=== PATIENT | female | born 1960 | race Caucasian/White ===

== ENCOUNTER 2017-03-03 10:52 | Inpatient (IN) | payer OTHER ==
--- NOTE | 2017-02-21 15:17 | HP ---
HISTORY AND PHYSICAL: DATE OF ADMISSION: 03/03/17 DATE OF OFFICE VISIT: 02/21/17 SURGEON: Yissel Noel MD (DICTATED BY LUIS A MAYES) PROCEDURE: Left total knee arthroplasty. CHIEF COMPLAINT: Left knee pain. HISTORY OF PRESENT ILLNESS: Ms. Chavira is a 57-year-old female with complaints of left knee pain. She has failed conservative management and continues to have severe left knee pain affecting her activities of daily living and she has elected to proceed with a left total knee arthroplasty, which is scheduled for 03/03/[address] Noel. PAST MEDICAL HISTORY: 1. COPD. 2. High cholesterol. 3. Hypertension. PAST SURGICAL HISTORY: 1. Cholecystectomy. 2. Left knee/lower leg fracture surgery. CURRENT MEDICATIONS: 1. Lisinopril. 2. Flexeril. 3. Pramipexole. 4. Simvastatin. 5. Tramadol. 6. Naproxen. 7. Ventolin HFA. 8. Spiriva. ALLERGIES: No known drug allergies. FAMILY HISTORY: Diabetes, hypertension, rheumatoid arthritis, melanoma. SOCIAL HISTORY: She is a 57-year-old female. She lives with spouse. She works as a store stock associate. She smokes 2 cigarettes a day. She smoked for the last 30 years. She uses alcohol rarely. She denies using illicit drugs. REVIEW OF SYSTEMS: A complete 14-point review of systems was reviewed with the patient and was positive for COPD with occasional shortness of breath. Hepatitis C status is unknown. She denies history of DVT, PE, or anesthesia problems. PHYSICAL EXAMINATION GENERAL: She is well developed, well nourished, in no acute distress. VITAL SIGNS: She stands 5 feet 7 inches tall, weighs 200 pounds. Her blood pressure 138/83, her heart rate is 72. HEENT: Normocephalic, atraumatic. NECK: Supple. No palpable lymph nodes. Trachea is midline. PULMONARY: Lungs are clear to auscultation bilaterally. CARDIO: Regular rate and rhythm. Strong S1 and S2. ABDOMEN: Soft, nontender, and nondistended. MUSCULOSKELETAL: Left lower extremity skin is intact. There are no open wounds or abrasions. She has mild joint effusion. Tenderness over the medial and lateral joint line. Full range of motion of the left knee. Her lower extremity muscle group strengths are intact at 5/5. She has intact sensation, 2 + dorsalis pedis pulses. NEUROLOGIC: She is alert and oriented x3. Cranial nerves II through XII are intact. ASSESSMENT AND PLAN: Ms. Chavira is a 57-year-old female with complaints of left knee pain secondary to osteoarthritis. She has failed conservative management and has elected to proceed with a left total knee arthroplasty, which is scheduled on 03/03/[address] Noel discussed the risks and benefits of the surgery at today's visit and all of her questions were answered. Percocet, Colace, and Coumadin were sent to her pharmacy today for postoperative pain control and DVT prophylaxis. She will see Dr. Noel back in 2 weeks after the surgery. LUIS A MAYES [id number]/[facility] #: [id number] MTDD
[~2017-03-03 10:52] MED LIST: Famotidine IV* 10 MG/ML 2 ML (20 mg) IV ONE; Metoclopramide TAB* 10 MG PO ONE
[2017-03-03] MEDS ORDERED: Metoclopramide TAB* 10 MG ONE (11:18)
[2017-03-03] MEDS ORDERED: Famotidine IV* 10 MG/ML 2 ML (20 mg) ONE (11:18)
[2017-03-03] MEDS ORDERED: ceFAZolin 2 GM PREMIX(*) 2 GM/50 ML BAG IVPB ONE (11:18)
[2017-03-03] MEDS ORDERED: Buffered Lidocaine 1% SYRIN* 5 ML/SYR SYRINGE ONE (11:18)
[2017-03-03] MEDS ORDERED: Ketorolac INJ* 30 MG/ML 1 ML VIAL ONE (11:55)
[2017-03-03] MEDS ORDERED: Midazolam* 1 MG/ML 5 ML VIAL (5 MG) ONE (11:55)
[2017-03-03] MEDS ORDERED: Lidocaine 2% PF * 5 ML VIAL ONE (11:55)
[2017-03-03] MEDS ORDERED: Dexamethasone IV* 4 MG/ML 1 ML (4 MG) ONE (11:55)
[2017-03-03] MEDS ORDERED: fentaNYL* 50 MCG/ML 2 ML VIAL (100 MCG VIAL) ONE ×3 (11:55→12:52)
[2017-03-03] MEDS ORDERED: Ondansetron INJ* 2 MG/ML VIAL ONE (11:55)
[2017-03-03] MEDS ORDERED: KETAMINE HCL* 50 MG/ML 10 ML VIAL ONE (11:55)
[2017-03-03] MEDS ORDERED: Propofol* 10 MG/ML 20 ML BTL IV PUSH ONE ×3 (11:55→15:47)
[2017-03-03] MEDS ORDERED: HYDROmorphone* 2 MG/ML 1 ML SYR ONE (13:28)
[2017-03-03] MEDS ORDERED: Morphine PF AMP (0.5MG/ML)* 5 MG/10 ML AMP ONE (13:40)
[2017-03-03] MEDS ORDERED: Midazolam* 1 MG/ML 2 ML VIAL (2 MG) ONE ×2 (14:08→14:39)
[2017-03-03] MEDS ORDERED: Phenylephrine INJ* 50 MG in NS 0.9% 250 ML* 245 ML IV PRN (15:10)
[2017-03-03] MEDS ORDERED: fentaNYL* 50 MCG/ML 2 ML VIAL (100 MCG VIAL) IV PRN (15:10)
[2017-03-03] MEDS ORDERED: Ondansetron INJ* 2 MG/ML VIAL IV PRN ×2 (15:10→15:12)
[2017-03-03] MEDS ORDERED: Ketorolac INJ* 30 MG/ML 1 ML VIAL IV PRN (15:12)
[2017-03-03] MEDS ORDERED: Lactated Ringers 500 ml BAG* 500 ML IV PRN (15:12)
[2017-03-03] MEDS ORDERED: oxyCODONE/Acetamin 5/325 MG* TAB PO PRN (15:12)
[2017-03-03] MEDS ORDERED: EPHEDrine (Pressors)* 50 MG/ML VIAL IV PUSH PRN (15:12)
[2017-03-03] MEDS ORDERED: Naloxone* 0.4 MG/ML 1 ML VIAL IV PRN (15:17)
[2017-03-03] MEDS ORDERED: diPHENhydraMINE IV* 50 MG/ML 1 ml VIAL (BENADRYL) IV PRN (15:17)
[2017-03-03] MEDS ORDERED: Polyethylene Glycol 3350* 17 GM PACKET PO PRN (15:34)
[2017-03-03] MEDS ORDERED: diPHENhydraMINE PO* 25 MG PO PRN (15:34)
[2017-03-03] MEDS ORDERED: Bisacodyl SUPP* 10 MG SUPP PR PRN (15:34)
[2017-03-03] MEDS ORDERED: Albuterol HFA INHALER* 8 gm MDI INH PRN (15:42)
--- NOTE | 2017-03-03 18:08 | RAD ---
INDICATION: Left knee arthroplasty COMPARISON: None TECHNIQUE: A portable 2 view examination is submitted were obtained. FINDINGS: There is left knee arthroplasty. Both femoral and tibial components appear well seated. There is a surgical drain. There is a cooling jacket. IMPRESSION: POSTOPERATIVE LEFT TOTAL KNEE ARTHROPLASTY
[2017-03-03] MEDS ORDERED: oxyCODONE/Acetamin 5/325 MG* TAB ONE (21:06)
[2017-03-03] MEDS: oxyCODONE/Acetamin 5/325 MG* TAB PO PRN (21:07)
[2017-03-03] MEDS ORDERED: Warfarin TAB(*) 6 MG PO ONE (23:15)
[2017-03-04] MEDS ORDERED: ceFAZolin 1 GM in Dextrose (*) 1 GM/50 ML BAG IVPB SCH (00:14)
[2017-03-04] MEDS: Docusate CAP* 100 MG PO SCH ×3 (00:25→21:20)
[2017-03-04] MEDS: Atorvastatin* 10 MG TAB PO SCH ×2 (00:27→21:55)
[2017-03-04] MEDS: ceFAZolin VIAL(*) 1 GM in NS 0.9% 50 ML* 50 ML IVPB SCH ×3 (00:28→16:04)
[2017-03-04] MEDS: Cyclobenzaprine TAB* 10 MG PO SCH ×4 (00:31→21:20)
[2017-03-04] MEDS: Mometasone/Formoter 200/5 MDI INH SCH ×3 (00:32→21:34)
[2017-03-04] MEDS: Magnesium Hydroxide LIQ* 30 ML UDC PO SCH ×3 (00:32→21:22)
[2017-03-04] MEDS: Ropivacaine* 300 MG in NS 0.9% 250 ML* 240 ML EPIDURAL SCH ×2 (01:10→15:12)
[2017-03-04] MEDS: oxyCODONE/Acetamin 5/325 MG* TAB PO PRN ×5 (03:30→20:39)
[2017-03-04] MEDS ORDERED: Lactated Ringers 500 ml BAG* 500 ML IV SCH (05:55)
[2017-03-04] MEDS ORDERED: Ondansetron INJ* 2 MG/ML VIAL IV PRN (06:00)
[2017-03-04] MEDS ORDERED: Ondansetron TAB* 4 MG PO PRN (06:00)
[2017-03-04] MEDS ORDERED: Acetaminophen TAB* 325 MG PO PRN (06:00)
[2017-03-04] MEDS ORDERED: oxyCODONE/Acetamin 5/325 MG* TAB PO PRN (06:00)
[2017-03-04] MEDS ORDERED: diPHENhydraMINE IV* 50 MG/ML 1 ml VIAL (BENADRYL) IV PRN (06:00)
[2017-03-04 06:26] LABS: Hematocrit 37 % (35-47); Hemoglobin 11.9 g/dl (12.0-16.0)
[2017-03-04 06:37] LABS: BUN/Creatinine Ratio 21.6 (8-20); Calcium 8.4 mg/dL (8.6-10.3); EGFR Non-African American 80.9 (>60)
--- NOTE | 2017-03-04 07:42 | PN ---
Progress Note - Progress Note SOAP: Subjective: Pt. is doing will this am, pain is controlled. Objective: LLE - drain removed, tip intact with 350 cc ss drainage. distally nvi with +df/ pf, full sens lt, 2+ dp pulse. Vital Signs: Temp Pulse Resp BP Pulse Ox 98.1 F 100 16 109/57 95 03/04/17 04:19 03/04/17 04:19 03/04/17 05:30 03/04/17 04:19 03/04/17 04:19 Laboratory Results - last 24 hr 03/04/17 03/04/17 03/04/17 06:01 06:01 06:01 Hgb 11.9 L Hct 37 INR (Anticoag Therapy) 1.14 H Sodium 134 Potassium 4.0 Chloride 102 Carbon Dioxide 28 Anion Gap 4 BUN 16 Creatinine 0.74 Est GFR ( Amer) 104.0 Est GFR (Non-Af Amer) 80.9 BUN/Creatinine Ratio 21.6 H Glucose 203 H Calcium 8.4 L Assessment: 57 yo F pod 1 s/p LTKA Plan: wbat lle pt/ot xrays satisfactory 8 mg coumadin tonight, lovenox bridge today plan d/c to home 03/05
[2017-03-04] MEDS: Morphine INJ* 10 MG/ML 1 ML SYRINGE IV PRN ×5 (08:20→23:46)
[2017-03-04] MEDS: Tiotropium CAP.INH* CAP.INH/18 MCG INH SCH (08:22)
--- NOTE | 2017-03-04 08:43 | CONS ---
CC: Dr. Noel; LUIS A Hawthorne CONSULTATION REPORT: DATE OF ADMISSION: 03/03/17 DATE OF CONSULT: 03/03/17 PRIMARY CARE PROVIDER: LUIS A Hawthorne, of [facility] ATTENDING PHYSICIAN: Gary Reis MD (dictated by Sena Rubi NP) PHYSICIAN REQUESTING CONSULTATION: Yissel Noel MD REASON FOR CONSULTATION: Co-medical management. HISTORY OF PRESENT ILLNESS: Ms. Chavira is a 57-year-old female with past medical history significant for hepatitis C, COPD, hyperlipidemia, hypertension , restless leg syndrome, and osteoarthritis who presents to the hospital for an elective right total knee arthroplasty with Dr. Noel. The patient states that leading up to her surgery, she has been in a good state of health with the exception of left knee pain. The patient denies any recent fevers, chills, chest pain, shortness of breath, nausea, vomiting, diarrhea, or urinary symptoms. Hospitalists were asked to assist with the management of this patient during her postoperative period. PAST MEDICAL HISTORY: 1. COPD. 2. Hyperlipidemia. 3. Hypertension. 4. Hepatitis C. 5. Restless leg syndrome. 6. Cervicalgia. PAST SURGICAL HISTORY: 1. Status post cholecystectomy. 2. Status post ORIF of the left leg. HOME MEDICATIONS: Include: 1. Lisinopril/hydrochlorothiazide 20/25 mg oral daily. 2. Flexeril 10 mg oral 3 times as needed for muscle spasm. 3. Tramadol 50 mg 1 to 2 tablets daily at bedtime as needed for pain. 4. Naproxen 500 mg oral twice daily as needed for pain. 5. Albuterol HFA 1 to 2 puffs inhalation every 4 hours as needed for shortness of breath. 6. Spiriva 1 puff inhalation daily. 7. Symbicort 160/4.5 mcg 2 puffs inhalation twice daily. ALLERGIES: No known drug allergies. FAMILY HISTORY: The patient denies any family history of coronary artery disease. The patient's maternal grandmother had a history of melanoma and diabetes mellitus. SOCIAL HISTORY: The patient is a current smoker, smoking approximately 2 cigarettes a day. She reports decreasing the amount of cigarettes she has smoked over the years and has smoked for approximately the last 30 years. The patient rarely drinks alcohol. She denies the use of recreational drugs. The patient is employed. She lives with her , Josh Chavira, who will be her surrogate decision maker in the event she is unable to make decisions for herself. REVIEW OF SYSTEMS: I performed a 14-point review of systems. All the pertinent positives and negatives are mentioned in the history of present illness. The remaining review of systems are negative. PHYSICAL EXAMINATION: Vital Signs: Temperature 98.6, heart rate 80, respiratory rate 16, O2 saturation 92% on 2 L via nasal cannula, and blood pressure 102/67. General appearance: The patient is alert, and appears to be in no acute distress. HEENT: Normocephalic, atraumatic. Pupils are equal and reactive to light. Extraocular movements are intact. Respiratory: There is no accessory muscle use and the lungs are clear to auscultation bilaterally. Cardiovascular: Regular rate and rhythm. S1, S2 are crisp. There are no murmurs, rubs, or gallops heard. Abdomen: Soft, tender and nondistended. There are bowel sounds present x4. Extremities: There is no lower extremity edema. DP and PT pulses are 2+ and symmetric. Musculoskeletal: There is no clubbing or cyanosis noted. The patient is currently unable to move her lower extremities due to her Duramorph spinal and epidural anesthesia. Skin: There is a dressing on the patient's left knee that is clean, dry, and intact. Neurological: Cranial nerves II through XII are grossly intact. The patient is currently unable to move and has no feeling in her lower extremities due to Duramorph spinal and epidural. Psychological: The patient is calm and cooperative. DIAGNOSTIC STUDIES/LAB DATA: Preoperative data from 02/25/17: White blood cell count 8.7, hemoglobin 16.4, hematocrit 49, and platelet count 208. Urinalysis was negative. Labs from 02/23/17 reveal a sodium of 137, potassium 3.8, chloride 99, CO2 30, BUN 16, creatinine 0.81, and glucose 120. EKG shows a sinus tachycardia with a rate of 102. Chest x-ray from 02/25/17. Radiologist's impression: Hyperinflation and no cardiopulmonary disease. IMPRESSION: Ms. Chavira is a 57-year-old female with past medical history significant for chronic obstructive pulmonary disease, hypertension, hyperlipidemia, and osteoarthritis who presents to the hospital stay for an elective left total knee arthroplasty with Dr. Noel. Hospitalists were asked to assist with the co-management of this patient during her hospitalization. ASSESSMENT/PLAN: 1. Status post left total knee arthroplasty: Management will be per Orthopedic Surgery. The patient will have physical therapy and occupational therapy starting in the morning. The patient's H and H will be trended. She will have a urinary catheter in place until her epidural is removed. For the patient has the effects of the Duramorph spinal and an epidural, pain management will be per Anesthesia. After that, pain management will be per Orthopedic Surgery. 2. Hypertension: We will hold the patient's lisinopril and hydrochlorothiazide during the perioperative period and restart accordingly. 3. Hyperlipidemia: The patient is not currently on medications. She reports that her primary care provider recently took her off of them. 4. Restless leg syndrome: The patient is not currently on medications. 5. Chronic obstructive pulmonary disease: The patient will be continued on her home Spiriva, Symbicort or auto-substitute and albuterol as needed for shortness of breath. 6. Fluids, electrolytes, and nutrition: The patient will be on a heart- healthy diet after starting out with clear liquids advanced as tolerated. 7. DVT prophylaxis: The patient will be on Lovenox bridged to warfarin per Orthopedic Surgery. 8. Code status: Full code. 9. Disposition: Inpatient with disposition per Orthopedic Surgery. TIME SPENT: Time for this consultation was 60 minutes and greater than half of that was spent [id number] with the patient, discussing her past medical history, medications, and the events leading up to her arrival today and performing a physical examination. The case has been reviewed with the attending, Dr. Reis, who agrees with the plan of care. Reviewed by BEKA KUHN 03/04/17 1808 [id number]/[facility] #: [id number] MARY ANN
[2017-03-04] MEDS ORDERED: HCTZ PO SCH (09:00)
[2017-03-04] MEDS ORDERED: SPIRIVA PO SCH (09:00)
[2017-03-04] MEDS ORDERED: Spiriva Inhaler DEVICE* 1 EACH DEVICE INH ONE (09:00)
[2017-03-04] MEDS ORDERED: LISINOPRIL PO SCH (09:00)
[2017-03-04] MEDS: oxyCODONE TAB* 5 MG TAB PO PRN ×3 (09:38→22:31)
[2017-03-04] MEDS ORDERED: Enoxaparin(*) 30 MG/0.3 ML SYR SUBCUT SCH (16:00)
--- NOTE | 2017-03-04 16:30 | PN ---
Subjective Date of Service: 03/04/17 Interval History: Patient seen and examined at bedside. Pt states that she is feeling well today, but is having a lot of pain. Denies fever, chills, shortness of breath, chest discomfort, N/V/D. Pt complains of indigestion, she uses tums at home and was on Prilosec in the past. Family History: Unchanged from Admission Social History: Unchanged from Admission Past Medical History: Unchanged from Admission Objective Active Medications: Acetaminophen (Tylenol Tab*) 650 mg PO Q4H PRN Reason: mild pain or fever Albuterol (Ventolin Hfa Inhaler*) 1 puff INH Q6H PRN Reason: SOB/WHEEZING Atorvastatin Calcium (Lipitor*) 5 mg PO BEDTIME [place] Bisacodyl (Dulcolax Supp*) 10 mg DC DAILY PRN Reason: constipation Cyclobenzaprine HCl (Flexeril Tab*) 10 mg PO TID [place] Diphenhydramine HCl (Benadryl Iv*) 12.5 mg IV Q6H PRN Reason: PRURITIS Diphenhydramine HCl (Benadryl Po*) 25 mg PO Q6H PRN Reason: INSOMNIA Docusate Sodium (Colace Cap*) 100 mg PO BID [place] Enoxaparin Sodium (Lovenox(*)) 30 mg SUBCUT Q24H [place] Ropivacaine 300 mg/ Sodium (Chloride) 300 mls @ 0 mls/hr EPIDURAL Q24H [place]; Per Protocol Reason: Protocol Lactated Ringer's (Lactated Ringers 1000 Ml Bag*) 1,000 mls @ 100 mls/hr IV .PER RATE [place] Lactulose (Lactulose*) 30 ml PO Q6H PRN Reason: constipation Magnesium Hydroxide (Milk Of Magnesia Liq*) 30 ml PO BID [place] Mometasone Furoate/Formoterol Fumar (Dulera 200/5 Mdi*) 2 puff INH BID [place] Reason: Protocol Morphine Sulfate (Morphine Inj (Syringe)*) 5 mg IV Q2H PRN Reason: PAIN Ondansetron HCl (Zofran Inj*) 4 mg IV Q6H PRN Reason: nausea Ondansetron HCl (Zofran Tab*) 4 mg PO Q6H PRN Reason: NAUSEA Oxycodone HCl (Roxycodone Tab*) 10 mg PO Q4H PRN Reason: breakthru pain Oxycodone HCl (Oxycontin(*)) 10 mg PO BID [facility] Oxycodone/Acetaminophen (Percocet 5/325 Tab*) 1 tab PO Q3H PRN Reason: PAIN - MODERATE Oxycodone/Acetaminophen (Percocet 5/325 Tab*) 2 tab PO Q3H PRN Reason: PAIN - MODERATE Pharmacy Profile Note (Coumadin Daily Reminder*) 1 note FOLLOW UP 1700 [facility] Polyethylene Glycol/Electrolytes (Miralax*) 17 gm PO DAILY PRN Reason: Constipation Tiotropium [place] (Spiriva Cap.Inh*) 1 cap INH DAILY [facility] Warfarin Sodium (Coumadin Tab(*)) 8 mg PO ONCE@1700 ONE Stop: 03/04/17 17:01 Vital Signs 03/03/17 03/03/17 03/03/17 17:02 17:05 17:10 Temperature 98.6 F Pulse Rate 77 73 68 Respiratory 16 16 16 Rate Blood Pressure 107/65 106/72 105/70 (mmHg) O2 Sat by Pulse 92 97 97 Oximetry 03/03/17 03/03/17 03/03/17 17:15 17:30 17:45 Temperature Pulse Rate 77 83 80 Respiratory 16 16 16 Rate Blood Pressure 107/72 103/70 102/67 (mmHg) O2 Sat by Pulse 97 93 92 Oximetry 03/03/17 03/03/17 03/03/17 18:00 18:15 18:30 Temperature 97.2 F Pulse Rate 76 86 79 Respiratory 16 16 16 Rate Blood Pressure 107/73 102/62 105/70 (mmHg) O2 Sat by Pulse 93 92 93 Oximetry 03/03/17 03/03/17 03/03/17 19:00 19:15 19:30 Temperature 98.6 F Pulse Rate 85 83 89 Respiratory 18 16 18 Rate Blood Pressure 97/67 104/78 105/71 (mmHg) O2 Sat by Pulse 93 93 94 Oximetry 03/03/17 03/03/17 03/03/17 19:45 20:00 20:15 Temperature 98.1 F Pulse Rate 87 81 83 Respiratory 18 18 18 Rate Blood Pressure 116/74 118/78 124/74 (mmHg) O2 Sat by Pulse 95 95 96 Oximetry 03/03/17 03/03/17 03/03/17 20:30 20:35 21:07 Temperature 98.1 F 98.1 F Pulse Rate 89 89 Respiratory 16 16 16 Rate Blood Pressure 103/64 103/64 (mmHg) O2 Sat by Pulse 96 96 Oximetry 03/03/17 03/03/17 03/03/17 21:18 22:01 22:48 Temperature 98.3 F 98.3 F 97.8 F Pulse Rate 87 96 96 Respiratory 18 17 16 Rate Blood Pressure 112/63 116/66 124/57 (mmHg) O2 Sat by Pulse 95 94 100 Oximetry 03/03/17 03/04/17 03/04/17 23:07 00:39 00:51 Temperature 97.8 F Pulse Rate 96 Respiratory 16 16 Rate Blood Pressure 111/55 (mmHg) O2 Sat by Pulse 94 94 Oximetry 03/04/17 03/04/17 03/04/17 02:30 03:30 04:19 Temperature 98.5 F 98.1 F Pulse Rate 100 100 Respiratory 16 16 16 Rate Blood Pressure 103/54 109/57 (mmHg) O2 Sat by Pulse 92 95 Oximetry 03/04/17 03/04/17 03/04/17 05:30 07:29 08:00 Temperature 98.5 F Pulse Rate 99 Respiratory 16 15 16 Rate Blood Pressure 105/56 (mmHg) O2 Sat by Pulse 94 Oximetry 03/04/17 03/04/17 03/04/17 11:33 12:14 14:16 Temperature 98.5 F Pulse Rate 95 Respiratory 20 16 Rate Blood Pressure 105/61 (mmHg) O2 Sat by Pulse 98 Oximetry Oxygen Devices in Use Now: None Appearance: NAD, laying in bed Eyes: No Scleral Icterus Respiratory: Symmetrical Chest Expansion and Respiratory Effort, Clear to Auscultation Cardiovascular: NL Sounds; No Murmurs; No JVD, RRR Abdominal: NL Sounds; No Tenderness; No Distention Extremities: No Edema Skin: No Rash or Ulcers Neurological: Alert and Oriented x 3, NL Muscle Strength and Tone Lines/Tubes/Other Access: Clean, Dry and Intact Peripheral IV - site benign Nutrition: Taking PO's Result Diagrams: 03/04/17 06:01 03/04/17 06:01 Assess/Plan/Problems-Billing Assessment: Ms. Chavira is a 57 yo female with PMH significant for COPD, HTN, HLD, and osteoarthritis who presented to the hospital for an elective left total knee arthroplasty on 03/03/[address] Noel. - Patient Problems (1) Status post total left knee replacement Code(s): Z96.652 - PRESENCE OF LEFT ARTIFICIAL KNEE JOINT SNOMED Code(s): 3306119769665 Comment: - POD #1 - Management per Orthopedics - Continue PT/OT - Pain management and bowel regime - Trend HH (2) HTN (hypertension) Code(s): I10 - ESSENTIAL (PRIMARY) HYPERTENSION SNOMED Code(s): 90885042 Comment: - BP continues to be soft - Continue to hold lisinopril and HCTZ for now (3) HLD (hyperlipidemia) Code(s): E78.5 - HYPERLIPIDEMIA, UNSPECIFIED SNOMED Code(s): 27257670 Comment: - Defer to PCP (4) RLS (restless legs syndrome) (5) COPD (chronic obstructive pulmonary disease) Code(s): J44.9 - CHRONIC OBSTRUCTIVE PULMONARY DISEASE, UNSPECIFIED SNOMED Code(s): 05668267 Comment: - No signs of exacerbation at this time - Continue Spiriva, dulera and PRN albuterol (6) GERD (gastroesophageal reflux disease) Code(s): K21.9 - GASTRO-ESOPHAGEAL REFLUX DISEASE WITHOUT ESOPHAGITIS SNOMED Code(s): 141699532 Comment: - Tums PRN - Start Prilosec (7) DVT prophylaxis Code(s): RRC6118 - SNOMED Code(s): 793555052 Comment: - Lovenox bridge to warfarin per ortho (8) Full code status Code(s): Z78.9 - OTHER SPECIFIED HEALTH STATUS SNOMED Code(s): 650877558 Status and Disposition: Inpatient. Disposition per Ortho.
[2017-03-04] MEDS ORDERED: Calcium Carbonate CHEW TAB* 500 MG (TUMS) ONE (16:45)
[2017-03-04] MEDS: Calcium Carbonate CHEW TAB* 500 MG (TUMS) PO PRN ×2 (16:47→21:33)
[2017-03-04] MEDS ORDERED: Warfarin TAB(*) 4 MG PO ONE (17:00)
[2017-03-04] MEDS: oxyCODONE SR TAB(*) 10 MG TAB.SR PO SCH (21:21)
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
[2017-03-04] MEDS ORDERED: Ketorolac INJ* 30 MG/ML 1 ML VIAL ONE (23:21)
[2017-03-04] MEDS: Ketorolac INJ* 30 MG/ML 1 ML VIAL IV PUSH PRN (23:24)
[2017-03-05] MEDS: oxyCODONE/Acetamin 5/325 MG* TAB PO PRN ×3 (00:50→10:18)
[2017-03-05] MEDS: oxyCODONE TAB* 5 MG TAB PO PRN (02:43)
[2017-03-05] MEDS ORDERED: Omeprazole CAP* 20 MG PO SCH (06:00)
--- NOTE | 2017-03-05 07:51 | PN ---
Subjective Date of Service: 03/05/17 Interval History: Patient seen and examined at bedside. Pt states that her pain has improved overnight and she feels she may have "done too much" yesterday. Denies fever, chills, lightheadedness or dizziness, shortness of breath, chest discomfort, N/V /D. Family History: Unchanged from Admission Social History: Unchanged from Admission Past Medical History: Unchanged from Admission Objective Active Medications: Acetaminophen (Tylenol Tab*) 650 mg PO Q4H PRN Reason: mild pain or fever Albuterol (Ventolin Hfa Inhaler*) 1 puff INH Q6H PRN Reason: SOB/WHEEZING Atorvastatin Calcium (Lipitor*) 5 mg PO BEDTIME [place] Bisacodyl (Dulcolax Supp*) 10 mg NM DAILY PRN Reason: constipation Calcium Carbonate (Tums*) 500 mg PO Q4H PRN Reason: INDIGESTION Cyclobenzaprine HCl (Flexeril Tab*) 10 mg PO TID [place] Diphenhydramine HCl (Benadryl Iv*) 12.5 mg IV Q6H PRN Reason: PRURITIS Diphenhydramine HCl (Benadryl Po*) 25 mg PO Q6H PRN Reason: INSOMNIA Docusate Sodium (Colace Cap*) 100 mg PO BID [place] Enoxaparin Sodium (Lovenox(*)) 30 mg SUBCUT Q24H [place] Ketorolac Tromethamine (Toradol Inj*) 30 mg IV PUSH Q6H PRN Reason: PAIN Lactulose (Lactulose*) 30 ml PO Q6H PRN Reason: constipation Magnesium Hydroxide (Milk Of Magnesia Liq*) 30 ml PO BID [place] Mometasone Furoate/Formoterol Fumar (Dulera 200/5 Mdi*) 2 puff INH BID [place]ACA Reason: Protocol Morphine Sulfate (Morphine Inj (Syringe)*) 5 mg IV Q2H PRN Reason: PAIN Omeprazole (Prilosec Cap*) 20 mg PO 0600 [place] Ondansetron HCl (Zofran Inj*) 4 mg IV Q6H PRN Reason: nausea Ondansetron HCl (Zofran Tab*) 4 mg PO Q6H PRN Reason: NAUSEA Oxycodone HCl (Roxycodone Tab*) 10 mg PO Q4H PRN Reason: breakthru pain Oxycodone HCl (Oxycontin(*)) 10 mg PO BID [facility] Oxycodone/Acetaminophen (Percocet 5/325 Tab*) 1 tab PO Q3H PRN Reason: PAIN - MODERATE Oxycodone/Acetaminophen (Percocet 5/325 Tab*) 2 tab PO Q3H PRN Reason: PAIN - MODERATE Pharmacy Profile Note (Coumadin Daily Reminder*) 1 note FOLLOW UP 1700 [facility] Polyethylene Glycol/Electrolytes (Miralax*) 17 gm PO DAILY PRN Reason: Constipation Tiotropium [place] (Spiriva Cap.Inh*) 1 cap INH DAILY [facility] Vital Signs 03/04/17 03/04/17 03/04/17 11:23 11:33 12:14 Temperature 98.5 F Pulse Rate 95 Respiratory 16 20 Rate Blood Pressure 105/61 (mmHg) O2 Sat by Pulse 98 Oximetry 03/04/17 03/04/17 03/04/17 15:24 15:31 16:07 Temperature 98.0 F 98.1 F Pulse Rate 88 91 Respiratory 16 18 16 Rate Blood Pressure 98/56 113/60 (mmHg) O2 Sat by Pulse 90 92 Oximetry 03/04/17 03/04/17 03/04/17 20:00 20:16 20:39 Temperature 98.0 F Pulse Rate 91 Respiratory 16 16 18 Rate Blood Pressure 128/61 (mmHg) O2 Sat by Pulse 90 Oximetry 03/04/17 03/04/17 03/04/17 23:20 23:21 23:36 Temperature 98.2 F Pulse Rate 101 Respiratory 16 16 18 Rate Blood Pressure 122/80 (mmHg) O2 Sat by Pulse 97 Oximetry 03/04/17 03/05/17 03/05/17 23:46 00:00 00:31 Temperature Pulse Rate Respiratory 16 16 Rate Blood Pressure (mmHg) O2 Sat by Pulse 97 Oximetry 03/05/17 03/05/17 03/05/17 02:50 03:08 04:43 Temperature 97.8 F Pulse Rate 95 Respiratory 16 16 16 Rate Blood Pressure 118/55 (mmHg) O2 Sat by Pulse 95 Oximetry Oxygen Devices in Use Now: None Appearance: NAD, sitting up in a chair Eyes: No Scleral Icterus Respiratory: Symmetrical Chest Expansion and Respiratory Effort, Clear to Auscultation Cardiovascular: NL Sounds; No Murmurs; No JVD, RRR Abdominal: NL Sounds; No Tenderness; No Distention Extremities: No Edema Skin: No Rash or Ulcers, - - Dressing to right knee clean, dry and intact. Neurological: Alert and Oriented x 3, NL Muscle Strength and Tone Lines/Tubes/Other Access: Clean, Dry and Intact Peripheral IV - site benign Nutrition: Taking PO's Result Diagrams: 03/04/17 06:01 03/04/17 06:01 Assess/Plan/Problems-Billing Assessment: Ms. Chavira is a 57 yo female with PMH significant for COPD, HTN, HLD, and osteoarthritis who presented to the hospital for an elective left total knee arthroplasty on 03/03/[address] Noel. - Patient Problems (1) Status post total left knee replacement Code(s): Z96.652 - PRESENCE OF LEFT ARTIFICIAL KNEE JOINT SNOMED Code(s): 3394644019665 Comment: - POD #2 - Management per Orthopedics - HH stable - Continue PT/OT - Pain management and bowel regime (2) HTN (hypertension) Code(s): I10 - ESSENTIAL (PRIMARY) HYPERTENSION SNOMED Code(s): 21195266 Comment: - Normotensive - Continue to hold lisinopril and HCTZ for now, will resume if AM BP allows (3) HLD (hyperlipidemia) Code(s): E78.5 - HYPERLIPIDEMIA, UNSPECIFIED SNOMED Code(s): 99432452 Comment: - Defer to PCP (4) RLS (restless legs syndrome) (5) COPD (chronic obstructive pulmonary disease) Code(s): J44.9 - CHRONIC OBSTRUCTIVE PULMONARY DISEASE, UNSPECIFIED SNOMED Code(s): 49314448 Comment: - No signs of exacerbation at this time - Continue Spiriva, dulera and PRN albuterol (6) GERD (gastroesophageal reflux disease) Code(s): K21.9 - GASTRO-ESOPHAGEAL REFLUX DISEASE WITHOUT ESOPHAGITIS SNOMED Code(s): 243954125 Comment: - Continue Prilosec and Tums PRN (7) DVT prophylaxis Code(s): HVF7760 - SNOMED Code(s): 886738486 Comment: - Lovenox bridge to warfarin per ortho (8) Full code status Code(s): Z78.9 - OTHER SPECIFIED HEALTH STATUS SNOMED Code(s): 902779569 Status and Disposition: Inpatient. Disposition per Ortho.
--- NOTE | 2017-03-05 08:31 | PN ---
Progress Note - Progress Note SOAP: Subjective: Pt. reports pain overnight from "overdoing it in therapy". She is doing much better this AM. Objective: LLE - dressing changed, inc c/d/i. distally nvi. Vital Signs: Temp Pulse Resp BP Pulse Ox 97.8 F 95 16 118/55 95 03/05/17 03:08 03/05/17 03:08 03/05/17 07:21 03/05/17 03:08 03/05/17 03:08 Assessment: 57 yo F pod 2 s/p LTKA Plan: wbat lle pt/ot cont oxymorphone 10 bid and percocet plan d/c to home today with vns labs pending
[2017-03-05] MEDS: oxyCODONE SR TAB(*) 10 MG TAB.SR PO SCH (08:39)
[2017-03-05] MEDS: Cyclobenzaprine TAB* 10 MG PO SCH (08:40)
[2017-03-05] MEDS: Magnesium Hydroxide LIQ* 30 ML UDC PO SCH (08:40)
[2017-03-05] MEDS: Tiotropium CAP.INH* CAP.INH/18 MCG INH SCH (08:41)
[2017-03-05] MEDS: Docusate CAP* 100 MG PO SCH (08:41)
[2017-03-05] MEDS: Mometasone/Formoter 200/5 MDI INH SCH (08:44)
[2017-03-05] MEDS: Ketorolac INJ* 30 MG/ML 1 ML VIAL IV PUSH PRN (10:19)
[2017-03-05 11:08] LABS: Hematocrit 33 % (35-47); Hemoglobin 10.6 g/dl (12.0-16.0); Mean Platelet Volume 9 um3 (7.4-10.4)
[2017-03-05 11:37] VITALS: BP 100/57
[2017-03-05] MEDS: Calcium Carbonate CHEW TAB* 500 MG (TUMS) PO PRN (11:46)
--- NOTE | 2017-03-06 05:14 | DS ---
DISCHARGE SUMMARY: DATE OF ADMISSION: 03/03/17 DATE OF DISCHARGE: 03/05/17 PROVIDER: Dr. Yissel Noel. (DICTATED BY LUIS A MEJIA) ADMITTING DIAGNOSIS: Status post left total knee arthroplasty for treatment of severe left knee osteoarthritis. SECONDARY DIAGNOSES: 1. Chronic obstructive pulmonary disease. 2. High cholesterol. 3. Hypertension. CONSULTATIONS: Physical therapy, Occupational Therapy, and Medicine. HOSPITAL COURSE: The patient was admitted to [facility] on . She underwent a left total knee arthroplasty. Postoperatively, she recovered on the short-stay surgical unit. Postop day 1, the Madrid was removed. She was able to urinate on her own. She was advanced to a regular diet without difficulty and her pain was controlled with IV and oral pain medications. She was restarted on home medications. Her labs and vitals remained stable. She was able to weight bear as tolerated on the left lower extremity. She advanced appropriately with physical therapy and occupational therapy. DVT prophylaxis was managed with Lovenox and Coumadin until she reached a therapeutic INR. H and H on 03/04/17 was 11.9 and 37 and H and H on 03/05/17 was 10.6 and 33. INR on 03/04/17 was 1.14, INR on 03/05/17 was 2.39. The patient was given 6 mg of Coumadin on 03/03/17 and 8 mg of Coumadin on 03/04/17. By postop day 2, she was orthopedically and medically stable for discharge to home with VNS services. PHYSICAL EXAMINATION: General: A 57-year-old well-developed, well-nourished female in no acute distress. Alert and oriented x3. Appropriate mood and affect. Vitals: Temp 97.8, pulse 95, respiratory rate 16, blood pressure 118/55 , pulse ox 95%. Left lower extremity: The dressing was changed, the incision was clean, dry, and intact. She was able to plantar flex and dorsiflex at the ankle. Calf is soft and nontender. +2 dorsalis pedis pulse. Sensation is intact to light touch distally. DISCHARGE CONDITION: Stable. DISCHARGE MEDICATIONS: Home medications continued at discharge to include: 1. Naproxen 250 mg tabs 2 by mouth every 8 hours as needed for pain. The patient understands not to take this with Coumadin. 2. Tramadol 50 mg by mouth every 12 hours as needed. The patient will not take this while on Percocet. 3. Albuterol HFA inhaler 1 puff inhalation every 6 hours as needed. 4. Lisinopril/hydrochlorothiazide 20/25 one by mouth every morning. 5. Flexeril 10 mg by mouth 3 times a day. 6. Spiriva 1 inhalation by mouth every morning. 7. Symbicort 160/4.5 two puffs inhalation twice a day. New medications on discharge to include: 1. Colace 100 mg by mouth twice a day. 2. Warfarin 2 mg tablet by mouth daily as instructed by physician. 3. Percocet 5/325 one to two tabs every 4 to 6 hours as needed for pain. 4. OxyContin 10 mg by mouth twice a day. DISCHARGE INSTRUCTIONS: The patient will be weightbearing as tolerated on the left lower extremity. She will continue physical therapy at home. It is okay for her to shower 3 days after surgery. No bathing, swimming, or submerging the wound in water. She should redress the knee with gauze and an Enrique. She should call the office with increased drainage, redness, increased pain, or fever greater than 101.7. She should go to the ER with chest pain or shortness of breath. She will have a regular diet, increase fluid and fiber to prevent constipation. She should continue Colace for constipation prevention and if she does not have a bowel movement in 48 hours after discharge, she should call the office. Visiting nurses will do wound check and blood draws on Mondays and . She will be on Coumadin for 1 month for DVT prophylaxis, hold on 12/17, hold on 03/06/17, redraw on Tuesday. The patient was instructed not to take ibuprofen or naproxen while on the Coumadin. The patient will take Percocet and OxyContin 10 mg twice a day for the pain. Antibiotics will be required prior to any dental work in the future. She will follow up with Dr. Noel in 10 to 14 days for x-ray and suture removal. LUIS A MEJIA [id number]/[facility] #: [id number] MARY ANN
== END 2017-03-05 12:54 | disposition home health service (06) | DRG 302 ==
LOC: AA 10:52 → SSU 20:35
PROVIDERS: ADMIT Orthopaedic Surgery Adult Reconstructive Orthopaedic Surgery; ATTEND Orthopaedic Surgery Adult Reconstructive Orthopaedic Surgery
PROC: 0SRD0J9 Replacement of Left Knee Joint with Synthetic Substitute, Cemented, Open Approach (ICD-10-PCS; principal; 2017-03-03 13:45)
DX: M17.32 Unilateral post-traumatic osteoarthritis, left knee (principal); I10 Essential (primary) hypertension; J44.9 Chronic obstructive pulmonary disease, unspecified; E78.00 Pure hypercholesterolemia, unspecified; Z79.52 Long term (current) use of systemic steroids; Z79.01 Long term (current) use of anticoagulants; Z82.49 Family history of ischemic heart disease and other diseases of the circulatory system; Z83.3 Family history of diabetes mellitus; Z82.61 Family history of arthritis; Z80.8 Family history of malignant neoplasm of other organs or systems; G25.81 Restless legs syndrome; K21.9 Gastro-esophageal reflux disease without esophagitis; B19.20 Unspecified viral hepatitis C without hepatic coma; F17.210 Nicotine dependence, cigarettes, uncomplicated; M50.30 Other cervical disc degeneration, unspecified cervical region; G43.909 Migraine, unspecified, not intractable, without status migrainosus; M21.062 Valgus deformity, not elsewhere classified, left knee
CPT/HCPCS: 36415; 62327; 80048; 85014; 85018; 85049; 85610; A9270-GY; C1776; J0690; J1100; J1170; J1650; J1885; J2250; J2270; J2405; J2704; J2795; J3010